=== PATIENT | male | born 1935 | race Caucasian/White ===

== ENCOUNTER 2017-02-12 01:10 | Day surgery (SDC) | payer MEDICARE ==
[~2017-02-12 01:10] MED LIST: AMLO2.5T PO; ASPI-973 PO; CALC-190 PO; CHOL100045 PO; CLOP75TA3 PO; LISI-567 PO; METO50TA3 PO; MULT1CAP33 PO; OMEG10005 PO; PRAV20TA2 PO
[2017-02-12] MEDS ORDERED: CALC-867 PO (09:40)
[2017-02-12] MEDS ORDERED: CALC600T12 PO (09:41)
== END 2017-02-12 10:50 | disposition home or self-care (01) ==
LOC: SOUO 01:10
PROVIDERS: ATTEND Internal Medicine Interventional Cardiology
DX: I25.10 Atherosclerotic heart disease of native coronary artery without angina pectoris (principal)

== ENCOUNTER 2017-02-12 10:55 | Emergency (ER) | payer MEDICARE ==
[~2017-02-12] VITALS: Ht 166.4 cm; Wt 90.0 kg
[2017-02-12 09:00] VITALS: BP 118/54; PULSE 67; RESP 20; O2SAT 98
--- NOTE | 2017-02-12 09:00 | NUR ---
ADMISSION NOTE MALE PT ADMITTED FOR HEART CATH. DISCUSSED PLAN OF CARE WITH PT AND FAMILY. SEE ADMIT AND FLOW SHEET
[2017-02-12 09:25] LABS: BASOPHILS % (AUTO) 0.2 % (0-3); EOSINOPHILS % (AUTO) 0.9 % (0-5); MONOCYTES % (AUTO) 10.1 % (4-12); Mean Corpuscular Hemoglobin 37.3 pg (27.0-35.0); Mean Corpuscular Volume 113.9 fL (81-100); NEUTROPHILS % (AUTO) 75.2 % (40-74); Platelet Count 144 bil/L (150-400)
[~2017-02-12 10:55] MED LIST changes: +0.9% Sodium Chloride 1,000 ML IV ONE; +CALC-867 PO; +CALC600T12 PO
[2017-02-12 11:00] VITALS: BP 134/59; PULSE 67; RESP 10; O2SAT 95
--- NOTE | 2017-02-12 11:15 | NUR ---
TRANSFERED TO ED PER ORDERS
[2017-02-12 11:24] VITALS: BP 132/58; PULSE 77; RESP 16; O2SAT 98
--- NOTE | 2017-02-12 11:38 | ED.REPORT ---
HPI-General Illness Date of Service Feb 12, 2017 ED Provider: Dr. Kyle Pt is an 81 y/o male w/ a hx of HTN, CAD s/p stents x3, HLD, prior colon CA, left kidney CA s/p L nephrectomy, prostate CA s/p prostatectomy, presenting to the ED from the [facility] unit of [facility] due to severe anemia found on regular pre- operative labs. The patient was in the [facility] unit at [facility] with plan for an elective cardiac catheterization by Dr. Ramirez and regular pre-operative labs found him to be severely anemic with HGB/HCT of 6.2/18.9 respectively. He was sent to the ED with plan to admit to the hospitalist service for blood transfusion with hope to complete the catheterization during the admission. For the past few days he has been experiencing dyspnea on exertion, generalized weakness, and fatigue. Pt denies any bleeding, bloody or tarry stools, melena, CP, vomiting. He takes Plavix 75 mg once every other day and 81 mg ASA daily. He does have a history of lower GI bleed previously but this occurred a few days after a polypectomy. Nursing Notes Stated Complaint: ANEMIA Chief Complaint: General Complaint Nursing Notes Reviewed: Yes Allergies: Coded Allergies: No Known Allergies (Verified , 02/12/17) Scheduled Amlodipine (Amlodipine) 2.5 Mg Tablet 2.5 MG PO DAILY Aspirin (Aspirin) 81 Mg Tablet. 81 MG PO DAILY Calcium Carbonate (Calcium) 600 Mg Tablet 500 MG PO DAILY Cholecalciferol (Vitamin D3) (Vitamin D) 1,000 Unit Capsule 2,000 UNIT PO DAILY Clopidogrel Bisulfate (Plavix) 75 Mg Tablet 75 MG PO DAILY EVERY OTHER DAY Lisinopril (Lisinopril) 20 Mg Tablet 10 MG PO DAILY Metoprolol Tartrate (Metoprolol Tartrate) 50 Mg Tablet 50 MG PO BID [place]-3 Fatty Acids ([place]-3) 1,000 Mg Capsule 1,000 MG PO BID Pravastatin (Pravastatin) 20 Mg Tablet 20 MG PO HS Miscellaneous Medications Multivitamin (Multivitamins) 1 Each Capsule 1 EACH PO General Time Seen by MD: 11:38 Chief Complaint Other (anemia) Hx Obtained From: Patient Arrived By: Walk-in (from hospital floor) Sudden in Onset?: No Onset Occurred: Onset unknown Symptom Duration: Since onset Severity: Current: No pain currently Severity: Maximum: No pain Recent Healthcare: Recent doctor visit, Recent hospitalization Similar Sx Previous: No Past Medical History Past Medical History 1. Hypertension 2. Atherosclerotic coronary artery disease: The patient sees Dr. Farley every six months or so. He had a coronary angioplasty in 2005 with stents placed in the proximal and distal right coronary artery and in the circumflex marginal artery. He did have an acute myocardial infarction during surgery in December 2005, felt secondary to stent thrombosis an manifested by inferior ST elevation. Echocardiogram showed post infarct akinesis of the inferior wall with ejection fraction around 50%. 3. Hypercholesterolemia 4. Sigmoid colon cancer around 2000 5. 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 6. Adenocarcinoma of the rectum, treated with anterior resection. 7. Hx lower GI bleed which occurred a few days after a polypectomy 8. Prostate CA s/p prostatectomy Past Surgical History Cholecystecomy Cataract surgeries Fixation of a left intertrochanteric hip fracture due to mechanical fall. Prostatectomy for prostate cancer in 2010 Left nephrectomy Family History His father of an SD at 87, his mother of old age at 98. Smoking History Former Smoker Social History SOCIAL HISTORY: He does not smoke, quit 47 years ago. He does not drink alcohol, is retired. He was a hotel front desk agent. He is . Alcohol Use: Denies alcohol use Other Social History: Local resident Ambulatory Status Independent Review of Systems Full Review of Systems Constitutional: Reports: Fatigue, Weakness - generalized Respiratory: Reports: Dyspnea on exertion Cardiovascular: Denies: Chest pain GI: Denies: Abdominal pain, Bloody/tarry stool, Melena, Nausea, Vomiting Hematologic: Denies Bleeding, Denies Bruising Complete sys rev & neg: except as marked. Physical Exam Vital Signs Vital Signs Date Time Temp Pulse Resp B/P Pulse Ox O2 Delivery O2 Flow Rate FiO2 02/12/17 13:44 36.3 80 20 132/49 98 Room Air 02/12/17 11:24 36.1 77 16 132/58 98 Room Air 02/12/17 11:00 67 10 134/59 95 Room Air 02/12/17 09:00 36.7 67 20 118/54 98 Room Air Initial VS: Reviewed, Vital signs normal Head / Eyes: Atraumatic, Normocephalic ENT: Mucous membranes moist, Conjunctiva normal, No scleral icterus Neck: Supple, Full range of motion Respiratory: Breath sounds normal, Clear to auscultation, No respiratory distress Cardiovascular: Regular rate & rhythm, Heart sounds normal, Intact distal pulses Abdomen / GI: Soft, Non-tender, No distention Extremities: Vascular intact, Neuro intact, No swelling Neurologic: Alert, Oriented, Nonfocal Psychiatric: Mood/affect normal, Behavior normal, Normal thought content General/Constitutional: Awake, Alert, No acute distress, Well appearing, Cooperative, Not toxic appearing Mildly pale Skin: Atraumatic, Warm, Dry Mildly pale Rectum / Perineum: Atraumatic, Blood - occult heme -, No gross blood Performed by BARRINGTON Pinedo prior to handing the patient over to me: Jose C stool Interpretation & Diagnostics Lab Results Interpretation Result Diagram: 02/12/17 0915 02/12/17 0915 Test 02/12/17 09:15 White Blood Count 5.4th/mm3 (3.8-10.1) Red Blood Count 1.66mil/mm3 (4.40-5.80) Hemoglobin 6.2g/dL (13.8-17.2) Hematocrit 19.1% (41.0-50.0) Mean Corpuscular Volume 115.1fL (81-100) Mean Corpuscular Hemoglobin 37.3pg (27.0-35.0) Mean Corpuscular Hemoglobin Concent 32.5% (32.0-37.0) Red Cell Distribution Width 19.0% (12.3-15.4) Platelet Count 146bil/L (150-400) Neutrophils (%) (Auto) 74.2% (40-74) Lymphocytes (%) (Auto) 12.7% (14-46) Monocytes (%) (Auto) 10.7% (4-12) Eosinophils (%) (Auto) 0.9% (0-5) Basophils (%) (Auto) 0.2% (0-3) Reticulocyte Count,Calculated 4.9% (0.6-2.6) Sodium Level 132mEq/L (134-144) Potassium Level 4.8mEq/L (3.5-5.2) Chloride Level 97mEq/L (97-108) Carbon Dioxide Level 19mmol/L (18-29) Blood Urea Nitrogen 21mg/dL (8-27) Creatinine 1.82mg/dL (0.76-1.27) Estimat Glomerular Filtration Rate 38mL/min (>59) Glucose Level 107mg/dL (60-99) Calcium Level 9.2mg/dL (8.5-10.1) Iron Level 206ug/dL (35-150) Total Iron Binding Capacity 264ug/dL (250-450) Percent Iron Saturation 78%sat (15-50) Unsaturated Iron Binding 57.7ug/dL Re-Eval/Medical Decision Source of Hx: Old records, Private physician Time of Eval: 12:14 Re-Evaluation/Progress Note: Pt rechecked. Informed pt of need for transfusion. He agrees with plan. Time of Eval: 13:29 Re-Evaluation/Progress Note: Pt rechecked. Informed pt of plan for discharge back to [facility] to finish transfusion. Consultation #1: Referral / Consult Name: Jason Pisano MD Consulted With: Cardiology Call Returned at: 12:56 Web Design Instructor: Agrees with eval, Agrees with plan Note: Agrees with plan for outpatient transfusion. Consultation #2: Referral / Consult Name: Hawa Woodall Consulted With: Primary care physician Call Returned at: 13:18 Web Design Instructor: Agrees with eval, Agrees with plan Note: Agrees with plan for outpatient transfusion. Counseled Regarding: Diagnosis, Lab results, Need for follow-up, When/why to return to ED Discharge & Departure Primary Impression: Severe anemia Disposition: Home (Outpatient observation unit with plan for discharge home later today after transfusion.) Discharge Condition All VS Reviewed: Yes Condition: Improved Referrals: Hawa Woodall (PCP) Jason Pisano MD Scribe Attestation Portions of this note were transcribed by Dash Rincon. I, Dr. Kyle personally performed the history, physical exam and medical decision-making; I reviewed and confirmed the accuracy of the information in the transcribed note. copies to: Hawa Woodall; Jason Pisano MD, Kirk H MD Feb 12, 2017 11:38 DASH RINCON Feb 12, 2017 11:41
[2017-02-12 13:06] LABS: BASOPHILS % (AUTO) 0.2 % (0-3); EOSINOPHILS % (AUTO) 0.9 % (0-5); MONOCYTES % (AUTO) 10.7 % (4-12); Mean Corpuscular Hemoglobin 37.3 pg (27.0-35.0); Mean Corpuscular Volume 115.1 fL (81-100); NEUTROPHILS % (AUTO) 74.2 % (40-74); Platelet Count 146 bil/L (150-400)
[2017-02-12 13:16] LABS: Unsaturated Iron Binding 57.7 ug/dL
[2017-02-12 13:44] VITALS: BP 132/49; PULSE 80; RESP 20; O2SAT 98
[2017-02-12] MEDS ORDERED: 0.9% Sodium Chloride 250 ML ONE (15:03)
--- NOTE | 2017-02-12 15:15 | NUR ---
Patient arrived to [facility] from the ER to complete Blood Transfusion: Patient arrived to [facility] room 251 to complete ordered blood transfusion 2 units. He currently is finishing up his first unit of blood. Report received from Elenita James RN. Awake, alert in bed eating. Very pleasant and is tolerating his blood transfusion well.
--- NOTE | 2017-02-12 19:23 | NUR ---
Patient tolerated 2 units of blood without incident: Post transfusion H&H drawn. Hgb resulted in 7.5 post transfusion. Stated understanding of discharge instructions and education notes on blood transfusion. Plan for patient to follow up with his primary, Hawa KOO. Discharged home via wheelchair in stable condition accompanied by family.
--- NOTE | 2017-02-13 09:35 | NUR ---
Hawa KOO office notified of need for follow up: Spoke with Miriam VERA for [facility]. Copy of lab results faxed to their office. They will call the patient and schedule him to be seen on Sunday02/19/17.
== END 2017-02-12 15:25 | disposition home or self-care (01) ==
LOC: EDSTATUS 11:12 → SED 11:19
DX: D64.9 Anemia, unspecified (principal); I10 Essential (primary) hypertension; I25.10 Atherosclerotic heart disease of native coronary artery without angina pectoris; Z87.891 Personal history of nicotine dependence; Z85.46 Personal history of malignant neoplasm of prostate; Z85.038 Personal history of other malignant neoplasm of large intestine; Z79.82 Long term (current) use of aspirin; Z95.5 Presence of coronary angioplasty implant and graft
CPT/HCPCS: 36415; 36430; 80048; 85014; 85018; 85025; 85045; 86922; 93005; 99285; J7030; P9021

== ENCOUNTER 2017-02-15 13:35 | Day surgery (SDC) | payer MEDICARE ==
[~2017-02-15] VITALS: Ht 165.1 cm; Wt 87.5 kg
--- NOTE | 2017-02-15 07:47 | PCM.HPANE ---
Patient Data Surgeon Admitting Provider: Attending Provider:Karl Ge MD Primary Care Physician:Hawa Woodall Other Provider: Reason for Visit Macrocytic Anemia Ht/WT & BMI Body Mass Index Allergies Coded Allergies: No Known Allergies (Verified , 02/12/17) Past Anesthesia History Anesthesia History: Denies:: Abnormal Airway, Anesthesia Reactions (left hip mary/screws for fx, broken arm), Difficult Intubation, Fam Anesthesia Reaction, Fam Malignant Hypertherm, Malignant Hyperthermia Diabetes History Hx Diabetes?: No MRSA MRSA: No Medications Blood Thinner: Aspirin, Plavix Reported Medications Calcium Carbonate (Calcium)600 Mg [id number] Mg PO DAILY 02/12/17 Cholecalciferol (Vitamin D3) (Vitamin D)1,000 Unit Capsule2,000 Unit PO DAILY # 1 BOTTLE Ref 0 07/20/15 Pravastatin 20 Mg Hvmjzd25 Mg PO HS Ref 0 07/20/15 Clopidogrel Bisulfate (Plavix)75 Mg Cgctqx33 Mg PO DAILY 30 Days Ref 0 EVERY OTHER DAY 07/20/15 [place]-3 Fatty Acids ([place]-3)1,000 Mg Capsule1,000 Mg PO BID 07/20/15 Multivitamin (Multivitamins)1 Each Capsule1 Each PO 07/20/15 Lisinopril 20 Mg Dnlnkj70 Mg PO DAILY 30 Days Ref 0 07/20/15 Metoprolol Tartrate 50 Mg Eeopip09 Mg PO BID 30 Days Ref 0 10/28/13 Aspirin 81 Mg Tablet.dr81 Mg PO DAILY #1 BOTTLE Ref 0 10/28/13 Amlodipine 2.5 Mg Tablet2.5 Mg PO DAILY 30 Days Ref 0 10/28/13 Discontinued Reported Medications Calcium Carb &Cit/Magnesium Ox (Calmag Thins Tablet)1 Each Tablet1 Each PO 02/12/17 Calcium Carb&Cit/Mag12/Vit D3 (Calcium 500 mg Tablet)1 Each Tablet1 Each PO 07/20/15 History History of ENT Problems?: Yes HEENT History: Positive for:: Cataracts (CATARACT REMOVAL) Denies:: Abnormal Airway Difficult Intubation Dysphagia Hearing Problem Sinus Problem Denture Type: Full- Upper Teeth Condition: Within Normal Limits Missing Teeth Hx of Heart Problems?: Yes Cardiovascular History: Positive for:: Cardiac Surgery (STENT PLACED IN THE PAST) Chest Pain Hypertension Denies:: AICD Atrial Fibrillation Congestive Heart Failure Edema Heart Murmur Irregular Heartbeat Pacemaker Thrombophlebitis Valvular Heart Disease Hx of Respiratory Problem?: No Respiratory History: Positive for:: Dyspnea (WITH ACTIVITY ) Denies:: Asthma COPD Chest Surgery Cough Emphysema Hemoptysis Pneumonia Tuberculosis Hx Neurologic Problems?: No Neurological History: Denies:: Alzheimer's Disease CVA Dementia Dizziness Headaches Parkinson's Disease Seizures Hx of GI Problems?: No Hx of Problems?: Yes Genitourinary History: Denies:: HX of Hemodialysis Kidney Stones Urinary Tract Infection HX of Peritoneal Dialysis: No Male Hx: Positive for:: Prostate Problems (POST PROSTATECTOMY) Denies:: Scrotal Mass Testicular Surgery Skin History: Denies:: History Skin Disorders? Hx Musculoskeletal Problems?: Yes Musculoskeletal History: Positive for:: Back Injury (LOWER BACK) Denies:: Joint Replacement Musculoskeletal Trauma Hx of Psycho/Social Problems?: No Psycho Social History: Denies:: Anxiety Bipolar Disorder Hx Depression Suicide Attempt Hx Surgeries?: Yes (Two rectal ca surgeries, slick, nephrectomy, cardiac stents , prostatectomy,) Hx Any Other Health Problems?: Yes Other History: Positive for:: Cancer (COLON, KIDNEY, PROSTATE) Hospitalization Denies:: Endocrine Disease Thyroid Disease History Blood Transfusions: Positive for:: Blood Transfusions Denies:: Blood Transfuse Reaction Hx Diabetes: No Hx Alcohol Use: NoHx Substance Use: No Smoking Status: Former Smoker Have You Smoked inLast 12 mo: No Stop/Bang Risk Assessment Category Category 1A: Patient has history of documented sleep apnea, and HAS NOT received any narcotic, sedative or anesthesia administration during this stay. Category 1B: Patient has history of documented sleep apnea, and HAS received any narcotic , sedative or anesthesia administration during this stay Category 2: Patient has SUSPECTED Obstructive Sleep Apnea, and HAS received any narcotic , sedative or anesthesia administration during this stay. Category 3: Patient has SUSPECTED Obstructive Sleep Apnea and HAS NOT received narcotic, sedative or anesthesia administration during this stay. Category 4: Outpatient in Procedural Areas with known sleep apnea or who screen positive for High Risk via the STOP/BANG questionnaire. Exam Exam General Appearance: Alert, Oriented X3, Cooperative, No Acute Distress HEENT/AIRWAY: MP 2, Neck Movement (50% expected ROM), Mouth Opening (WNL, bullock ) Lungs: Normal Air Movement Heart: Exam Unremarkable Plan Impression Patient chart reviewed, patient interviewed and anesthestic plan with risks, benefits, and alternatives discussed, and informed consent obtained. ASA Physical Status: ASA2 Mod Systemic Disease Anesthetic Plan: MAC Bene/Risks/Altern/Consents: Yes HP Complete Prior to Induction: Yes Lawrence Mena MD Feb 15, 2017 07:47
[~2017-02-15 13:35] MED LIST changes: -0.9% Sodium Chloride 1,000 ML IV ONE; -CALC-190 PO; -CALC-867 PO
[2017-02-15] MEDS ORDERED: Propofol 10,000 mCg/mL 20 mL Inj ONE (13:36)
[2017-02-15 14:17] VITALS: BP 147/61; PULSE 57; RESP 12; O2SAT 96
[2017-02-15] MEDS ORDERED: Lactated Ringer's 1,000 ML IV SCH (15:32)
[2017-02-15] MEDS ORDERED: MetoCLOpramide 5 mg/mL 2 mL Inj IVPUSH PRN (15:35)
[2017-02-15] MEDS ORDERED: Ondansetron 2 mg/mL 2 mL Inj IVPUSH PRN (15:35)
--- NOTE | 2017-02-15 15:59 | PCM.ENDEGD ---
EGD Date of Service: Feb 15, 2017 Physician Karl Ge MD Pre Procedure Diagnosis: Anemia Post Procedure Dx & Findings: Mild scalloping of the duodenal folds Procedure Esophagogastroduodenoscopy PROCEDURE IN DETAIL: Anesthesiology sedation After proper sedation, Olympus video endoscope was inserted into patient's mouth and esophagus was successfully intubated. Scope introduced esophagus. Esophagus showed normal shiny whitish mucosa consistent with squamous cell component. Z line was intact at 40 cm from the incisors. Scope further advanced to the stomach. Stomach showed normal shiny mucosa with normal appearing rugae folds without any ulcer mass erosion. Cardia fundus body antrum pylorus were all visualized. Retroflexion was done. Stomach was easily inflated and deflatable using air. Scope further advanced to the distal duodenum. Mild scalloping of the duodenal folds noted. 5 biopsies obtained to make sure patient does not have celiac disease. Impression Mild scalloping of the duodenal folds Recommendation Await biopsy Presedation Assessment Risks and Benefits Informed consent was obtained from the patient after all risks and benefits including but not limited to drug reaction, infection, pain, bleeding, perforation, as well as alternatives were discussed. Patient monitoring Continuous pulse oximetry, cardiac monitoring, blood pressure monitoring, IV access, and oxygen at 2L per nasal cannula. Complications There were no periprocedural complications identified. Post Procedure Plan Post Procedure Recommendations 1. Restrict activities today. 2. Resume normal activities in the morning. 3. Resume medications. 4. GERD behavioral modification: - Avoid fatty, acidic, spicy, large meals - Do not lie down after meals - Do not eat or drink anything for at least 2 1/2 hours before going to bed at night - Discontinue tobacco and alcohol - Decrease or avoid caffeine - Avoid chocolate and mints - Decrease weight - Avoid aspirin and non steroidal anti-inflammatory agents (NSAID) such as Aleve, Advil, Mobic, Naproxen, Ibuprofen, etc 5. Add proton pump inhibitor. Take 30 minutes before 1st meal of the day. 6. Patient informed of normal post procedure side effects as bloating, drowsiness, blood streaking in the stool 7. If gastric biopsy reveal H.pylori, continue with appropriate treatment 8. If small bowel biopsy reveals celiac, continue with appropriate treatment 9. Please don't hesitate to call me with any questions Karl Ge MD Feb 15, 2017 15:59
[2017-02-15 16:00] VITALS: BP 99/45; PULSE 60; RESP 14; O2SAT 93
--- NOTE | 2017-02-15 16:02 | PCM.ENDCOL ---
Colonoscopy Date of Service: Feb 15, 2017 Physician Karl Ge MD Pre Procedure Diagnosis: Anemia history of polyp Post Procedure Dx & Findings: Suboptimal prep hemorrhoids residual polyp site Procedure Colonoscopy PROCEDURE IN DETAIL: Prep suboptimal in certain areas. Withdrawal time 10 minutes After unremarkable rectal examination the Olympus video colonoscope was inserted patient's anal canal and was advanced to cecum. Landmarks were identified including the ileocecal valve and appendiceal orifice. Further events the terminal ileum advanced 10 cm. Terminal ileum showed normal villous structures without any ulcer mass or erosion. Scope was withdrawn systematically. Visualized colonic mucosa showed healthy shiny mucosa with normal healthy-appearing vasculature. In the cecum, there was a tattoo as well as scarring and probable residual polyp site. Random biopsies were obtained at the polypectomy site. The prep was suboptimal in certain areas. There are no areas especially in the cecum was fibrous food material which clogged the scope. These areas were on washable. In the rectum retroflexion was done which showed hemorrhoids. Anal canal was inspected carefully on the way out and hemorrhoids noted. Impression Residual polypectomy site status post random biopsy. Hemorrhoids Suboptimal prep in certain areas. Recommendation Repeat colonoscopy1- 2 months with week of low fiber diet. Follow-up with Dr. Sharp in the GI clinic for anemia. Presedation Assessment Risks and Benefits Informed consent was obtained from the patient after all risks and benefits including but not limited to drug reaction, infection, pain, bleeding, perforation, as well as alternatives were discussed. Patient monitoring Continuous pulse oximetry, cardiac monitoring, blood pressure monitoring, IV access, and oxygen at 2L per nasal cannula. Complications There were no periprocedural complications identified. Post Procedure Plan Post Procedure Recommendations 1. Restrict activities today. 2. Resume normal activities in the morning. 3. Resume medications. 4. Patient informed of normal post procedure side effects as bloating, drowsiness, blood streaking in the stool. 5. average risk CRCS. If colon polyps come back as: -Hyperplastic- can repeat colonoscopy in 10 years -Tubular adenoma- repeat colonoscopy in 5 years -Tubulovillous/villous adenoma- repeat colonoscopy in 3 years -If any dysplasia- return to clinic as soon as possible 6. Please don't hesitate to call me with any questions. Karl Ge MD Feb 15, 2017 16:02
--- NOTE | 2017-02-15 16:08 | PCM.ANEP1 ---
Post Anesthesia PACU Phase 1 Assessment Vital Signs Vital Signs Date Time Temp Pulse Resp B/P Pulse Ox O2 Delivery O2 Flow Rate FiO2 02/15/17 16:00 60 14 99/45 93 Room Air 02/15/17 14:17 57 12 147/61 96 Room Air Anesthetic Administered: MAC Level of Alertness: Awake, talking WHITE's with Equal Strength: Yes Pain: No Nausea or Vomiting: No CV Function & Hydration Stable: Yes Airway Device: Oxygen Delivery: Nasal Cannula Lungs: Normal Air Movement PACU Phase 2 Assessment Complications: No Follow up Care: No Patient Instructions Provided: N/A Lawrence Mena MD Feb 15, 2017 16:08
[2017-02-15 16:10] VITALS: BP 109/53; PULSE 55; RESP 14; O2SAT 94
[2017-02-15 16:19] VITALS: BP 142/62; PULSE 62; RESP 16; O2SAT 100
[2017-02-15 16:28] VITALS: BP 138/59; PULSE 62; RESP 16; O2SAT 100
--- NOTE | 2017-02-20 11:44 | PATH ---
SURGICAL PATHOLOGY Attending Physician:Kral Ge M.D. CASE STATUS: Signed Out PATIENT NAME: DMITRI GARG I. PID: [id number] : 1935 DATE COLLECTED:02/15/2017 00:00 SPECIMEN: 1: Duodenum, Biopsy 2: Colon, Polyp CLINICAL HISTORY: ANEMIA 1). DUODENUM BIOPSY 2). RESIDUAL CECUM POLYP FINAL DIAGNOSIS: 1. Duodenum, Biopsy: Duodenal mucosa with foveolar metaplasia. Negative for active inflammation, features of sprue, dysplasia or malignancy. 2. Residual Cecal Polyp, Biopsy: Colonic mucosa with mild architectural distortion and hyperplastic features consistent with previous biopsy site. Negative for dysplasia or malignancy. ICD10: D50.9 GROSS DESCRIPTION: The specimens are received in formalin, labeled with the patient's name, and sublabeled as the following: (1) duodenum Bx; (2) residual cecum polyp. (1) The specimen consists of multiple fragments of sahrp glistening semitranslucent tissue (0.5 x 0.4 x 0.1 cm in aggregate). Section code: (1A) tissue. Specimen entirely submitted. (2) The specimen consists of multiple fragments of mtz-white glistening translucent tissue (1.3 x 0.3 x 0.1 cm in aggregate). Section code: (2A) tissue. Specimen entirely submitted. 02/17/17 ICD-9 CODES: CPT CODES: 1: 60606 2: 15015 Electronically Signed Out Baljeet Elizabeth MD, Ph.D. [facility] Pathology [facility] [address] [place] [address], [place] [address] Technical component performed at [facility], [address] [place] [address] Ave[address], [place], [address]
== END 2017-02-15 23:59 | disposition home or self-care (01) ==
LOC: SAS 13:35
PROVIDERS: ATTEND Internal Medicine
DX: K64.8 Other hemorrhoids (principal); K21.9 Gastro-esophageal reflux disease without esophagitis; D53.9 Nutritional anemia, unspecified; I10 Essential (primary) hypertension; I25.10 Atherosclerotic heart disease of native coronary artery without angina pectoris; R06.09 Other forms of dyspnea; Z96.81 Presence of artificial skin; Z79.82 Long term (current) use of aspirin; Z79.899 Other long term (current) drug therapy; Z87.891 Personal history of nicotine dependence
CPT/HCPCS: 43239; 45378; J2704; J7120

== ENCOUNTER → 2017-03-07 | Day surgery (SDC) | payer MEDICARE ==
[~2017-03-07] VITALS: Ht 165.1 cm; Wt 86.0 kg
[~2017-03-07] MED LIST changes: +0.9% Sodium Chloride 250 ML IV ONE; +Furosemide 10 mg/mL 2 mL Inj IV ONE
[2017-03-07 10:06] VITALS: BP 114/59; PULSE 85; RESP 16; O2SAT 96
[2017-03-07 10:30] VITALS: BP 121/57; PULSE 73; RESP 16
[2017-03-07 10:45] VITALS: BP 114/61; PULSE 76; RESP 16
[2017-03-07 13:55] VITALS: BP 111/67; PULSE 98; RESP 16
[2017-03-07 14:25] VITALS: BP 115/62; PULSE 86; RESP 16
[2017-03-07 17:50] VITALS: BP 116/69; PULSE 90; RESP 16
--- NOTE | 2017-03-07 18:52 | NUR ---
Blood Transfusion Patient arrived to unit in wheelchair, pushed by son. Labs drawn, IV initiated. Received 2 units PRBCs, and Lasix following each unit. Up to bathroom several times, also incontinent of large amount of urine. Brief changed twice. Post H/H drawn, Hct 9.4 and Hgb 27. 3. No reaction with transfusion. Left in wheelchair, pushed by myself to son's private vehicle.
== END | disposition home or self-care (01) ==
LOC: MOCO 07:56
PROVIDERS: ATTEND Nurse Practitioner
DX: D64.9 Anemia, unspecified (principal); Z85.038 Personal history of other malignant neoplasm of large intestine; I12.9 Hypertensive chronic kidney disease with stage 1 through stage 4 chronic kidney disease, or unspecified chronic kidney disease; N18.3 Chronic kidney disease, stage 3 (moderate); Z85.528 Personal history of other malignant neoplasm of kidney; I25.10 Atherosclerotic heart disease of native coronary artery without angina pectoris; Z95.5 Presence of coronary angioplasty implant and graft

== ENCOUNTER → 2017-03-24 | Day surgery (SDC) | payer MEDICARE ==
[~2017-03-24] VITALS: Ht 165.1 cm; Wt 84.3 kg
[2017-03-24] VITALS (7 sets, daily range): BP systolic 108–127; BP diastolic 54–56; PULSE 56–66; RESP 16; O2SAT 98
[~2017-03-24] MED LIST changes: -0.9% Sodium Chloride 250 ML IV ONE; -CALC600T12 PO; -Furosemide 10 mg/mL 2 mL Inj IV ONE; +Furosemide 10 mg/mL 2 mL Inj IV PRN
--- NOTE | 2017-03-24 10:38 | DRSVH ---
PROCEDURE: X-RAY KUB ([id number]) INDICATIONS: CHECK FOR RETAINED PATENCY PILL TECHNIQUE: One view of the abdomen acquired. COMPARISON: None. FINDINGS: Surgical changes and devices: None. Bowel: Bowel gas pattern is normal. Soft tissues: No suspicious abdominal calcifications. Visualized solid organ contours appear normal in size. Multiple surgical clips project over the left upper quadrant of the abdomen and the pelvis. Ovoid-shaped radiodense foreign body projects over the right lower hemipelvis likely represents mona ined patency pill. Bones: No suspicious bony lesions. Postsurgical changes compatible with ORIF of proximal left femur fracture. IMPRESSION: Probable retained patency pill projecting over the right lower hemipelvis. Dictated by: Jacinta Schneider MD, PhD on 03/24/2017 at 10:35 Approved by: Jacinta Schneider MD, PhD on 03/24/2017 at 10:36
[2017-03-24 17:40] LABS: BASOPHILS % (AUTO) 0.3 % (0-3); EOSINOPHILS % (AUTO) 1.8 % (0-5); MONOCYTES % (AUTO) 15.8 % (4-12); Mean Corpuscular Hemoglobin 32.9 pg (27.0-35.0); Mean Corpuscular Volume 97.2 fL (81-100); NEUTROPHILS % (AUTO) 58.3 % (40-74); Platelet Count 119 bil/L (150-400)
--- NOTE | 2017-03-24 18:14 | NUR ---
Transfusion Patient arrived with cane to unit. IV initiated, typed and cross matched for 2 units PRBCs. Tolerated transfusion without reaction. Lasix received after each unit. Up to bathroom to void, and change briefs. Labs drawn. Transported to private vehicle in wheelchair with his belongings.
== END | disposition home or self-care (01) ==
LOC: MOCO 07:45
PROVIDERS: ATTEND Nurse Practitioner
DX: D64.9 Anemia, unspecified (principal); I12.9 Hypertensive chronic kidney disease with stage 1 through stage 4 chronic kidney disease, or unspecified chronic kidney disease; I25.10 Atherosclerotic heart disease of native coronary artery without angina pectoris; N18.9 Chronic kidney disease, unspecified; E78.5 Hyperlipidemia, unspecified; Z87.891 Personal history of nicotine dependence; R32 Unspecified urinary incontinence; Z85.51 Personal history of malignant neoplasm of bladder; Z85.46 Personal history of malignant neoplasm of prostate; Z85.528 Personal history of other malignant neoplasm of kidney; Z79.899 Other long term (current) drug therapy; Z79.82 Long term (current) use of aspirin
CPT/HCPCS: 36415; 74000; 85025; 86922; J1940; J7050